=== PATIENT | female | born 1950 | race Caucasian/White ===

== ENCOUNTER 2021-07-14 11:01 | Emergency (ER) | payer BC, SELFPAY ==
--- NOTE | ~2021-07-14 | XR_ITS ---
EXAMINATION: XR foot LT min 3V EXAM DATE: 07/14/2021 11:26 INDICATION: Left foot pains, states she walked a mile today. TECHNIQUE: Left foot dorsoplantar, lateral and oblique projections obtained and reviewed. There is n o prior study for comparison. FINDINGS: Left metatarsal bones unremarkable. There are no acute fractures or dislocations identifi ed. There is no subcutaneous gas. The soft tissue is unremarkable. There are no radiopaque foreig n bodies. IMPRESSION: 1. Unremarkable left foot exam. Reviewed, dictated and finalized at location B.
[2021-07-14 11:16] VITALS: BP 128/93; PULSE 90; RESP 16; TEMP 36.2; O2SAT 99
--- NOTE | 2021-07-14 12:18 | ED.LOWEXIN ---
HPI - Extremity Injury (Lower) General Chief Complaint: Extremity Injury, Lower Stated Complaint: left foot Time Seen by Provider: 07/14/21 12:09 Source: patient and RN notes reviewed Mode of arrival: ambulatory Limitations: no limitations History of Present Illness HPI Narrative: Patient presents today complaining of left foot pain x3 days after walking a mile outside. Patient typically walks a mile every day. Believes she may have stepped wrong while turning a corner. History of osteoarthritis. Denies numbness or tingling. Currently rates her pain 7/10 with weightbearing and has been taking Tylenol with some relief. MD complaint: foot injury Related Data Home Medications Medication Instructions Recorded Confirmed albuterol sulfate INHALATION 07/14/21 amlodipine 07/14/21 atorvastatin 07/14/21 beclomethasone dipropionate [Qvar INHALATION 07/14/21 07/14/21 RediHaler] montelukast mg 07/14/21 omeprazole 07/14/21 Allergies Allergy/AdvReac Type Severity Reaction Status Date / Time No Known Allergies Allergy Unknown Verified 07/14/21 11:56 Review of Systems Review of Systems: CONSTITUTIONAL: Denies body aches, fever, chills, or sweats. EYES: Denies visual changes, redness, or discharge. ENT: Denies rhinorrhea, congestion, sore throat, or otalgia. CARDIOVASCULAR: Denies chest pain, palpitations, or edema. RESPIRATORY: Denies cough or dyspnea. GASTROINTESTINAL: Denies abdominal pain, nausea, vomiting, or diarrhea. GENITOURINARY: Denies dysuria or hematuria. SKIN: Denies rash, itching, or wounds. MUSCULOSKELETAL: Denies back pain, joint pain, or myalgia.+ Left foot pain NEUROLOGIC: Denies headache, numbness, tingling, or weakness. PSYCH: Denies depression or anxiety. PMFSH Comments At time of signature, I have reviewed and agree with nursing past medical, surgical, social and family history unless otherwise noted. Please see nursing chart for further information. There is no relevant family history pertinent to the presenting complaint Exam Narrative: GENERAL: Well-appearing, well-nourished, and in no acute distress. HEAD: Normocephalic, atraumatic. EYES: EOMI. No redness or drainage. Conjunctivae normal. ENT: Mucous membranes pink and moist. NECK: Normal AROM. CHEST: No respiratory distress. EXTREMITIES: Left: No ecchymosis, erythema, or edema noted. Tenderness to the lateral portion of the foot and plantar aspect of the mid fifth metatarsal. Distal sensation intact. Capillary refill normal. Pedal pulse normal. Full range of motion of the ankle and all toes. SKIN: Warm, dry, no rash. Capillary refill normal. Normal skin turgor. NEURO: No focal deficits. Alert and oriented x3. Gait steady. PSYCH: Normal affect. No signs of depression or anxiety. Course Vital Signs Vital signs: Vital Signs Temperature 97.2 F L 07/14/21 11:16 Pulse Rate 90 07/14/21 11:16 Respiratory Rate 16 07/14/21 11:16 Blood Pressure 128/93 H 07/14/21 11:16 Pulse Oximetry 99 07/14/21 11:16 Temperature 97.2 F L 07/14/21 11:16 Pulse Rate 90 07/14/21 11:16 Respiratory Rate 16 07/14/21 11:16 Blood Pressure 128/93 H 07/14/21 11:16 Pulse Oximetry 99 07/14/21 11:16 Reviewed. Pt has been instructed to follow up with her PCP regarding her elevated blood pressure today. MDM - Extremity Injury (Lower) Differential Diagnosis Differential diagnosis: Likely other (Foot sprain, foot fracture) Imaging Data Radiologist's impression: ITS Impressions Foot X-Ray 07/14/21 11:29 IMPRESSION: 1. Unremarkable left foot exam. Critical Care Time Critical Care Time Critical Care Time: No Discharge Plan Discharge Clinical Impression: Sprain of foot, left Patient Disposition: Home, Self-Care Condition: Stable Instructions: Foot Sprain (ED) Additional Instructions: Your x-ray is negative for fracture today. You have likely sprained your foot. Apply ice. Contin
== END 2021-07-14 12:33 | disposition home or self-care (01) ==
PROVIDERS: Emergency Provider Nurse Practitioner
DX: S93.602A Unspecified sprain of left foot, initial encounter (principal); X58.XXXA Exposure to other specified factors, initial encounter
CPT/HCPCS: 73630; 99213; G0463

== ENCOUNTER 2021-08-02 15:42 | Outpatient (CLI) | payer BC, SELFPAY ==
[2021-08-02 18:21] LABS: Vitamin D 25 Hydroxy 32.7 ng/mL
== END 2021-08-02 15:43 | disposition home or self-care (01) ==
PROVIDERS: Visit Provider Podiatrist Foot & Ankle Surgery
DX: E55.9 Vitamin D deficiency, unspecified (principal); M84.475A Pathological fracture, left foot, initial encounter for fracture
CPT/HCPCS: 36415; 82306

== ENCOUNTER 2024-04-22 15:00 | Outpatient (CLI) | payer MEDICARE, SELFPAY ==
--- NOTE | ~2024-04-22 | XR_ITS ---
EXAMINATION: XR knee RT min 4V, XR knee LT min 4V DATE: 04/22/2024 15:31 INDICATION: Chronic bilateral anterior knee pain TECHNIQUE: 1. Weight bearing anteroposterior and Mims, sunrise, and flexed lateral views of the right knee were obtained. 2. Weight bearing anteroposterior and Mims, sunrise, and flexed lateral views of the left knee w ere obtained. COMPARISON: None. FINDINGS: 10 degree right genu valgus. Normal alignment at the left knee. No fracture of either knee. There is severe joint space narrowing at the medial compartment right knee most prominent at the knee in the f lexed position and with moderate-sized marginal osteophytes and some articular cortical irregularity and mild subarticular cystic change. Tiny marginal ossified swelling the medial and patellofemoral co mpartments of the right knee. The left knee there is mild to moderate joint space narrowing in the me dial compartment of the left knee. No joint effusion in either knee. IMPRESSION: 1. Tricompartmental osteoarthritis at the right knee, severe in the lateral compartment and mild in t he medial patellofemoral compartments. 2. Mild to moderate osteoarthritis in the medial compartment of the left knee. Reviewed, dictated and finalized at location B. IMPRESSION: 1. Tricompartmental osteoarthritis at the right knee, severe in the lateral com partment and mild in the medial patellofemoral compartments. 2. Mild to moderate osteoarthritis in the medial compartment of the left knee.
== END 2024-04-22 15:01 | disposition home or self-care (01) ==
LOC: ANHIMG 15:06
PROVIDERS: Visit Provider Orthopaedic Surgery
DX: M17.0 Bilateral primary osteoarthritis of knee (principal)
CPT/HCPCS: 73564

== ENCOUNTER 2025-07-15 16:44 | Outpatient (CLI) | payer MEDICARE, SELFPAY ==
--- NOTE | ~2025-07-15 | XR_ITS ---
EXAMINATION: XR knee RT min 4V, 07/15/2025 16:57 CDT HISTORY: M17.0 - Bilateral primary osteoarthritis of knee COMPARISON: No comparisons available. Findings: No acute fracture or malalignment. Moderate tricompartmental degenerative changes, small effusion Soft tissues unremarkable. Impression: No acute fracture or malalignment. Reviewed, dictated and finalized at location A. Impression: No acute fracture or malalignment.
--- NOTE | ~2025-07-15 | XR_ITS ---
EXAMINATION: XR knee LT min 4V, 07/15/2025 16:57 CDT HISTORY: M17.0 - Bilateral primary osteoarthritis of knee COMPARISON: No comparisons available. Findings: No acute fracture or malalignment. Moderate tricompartmental degenerative changes, no effusion Soft tissues unremarkable. Impression: No acute fracture or malalignment. Reviewed, dictated and finalized at location A. Impression: No acute fracture or malalignment.
--- OUTSIDE RECORDS SUMMARY | 2025-07-15 16:57 | XMS_ITS | Encounter Summary ---
Author Organization [facility] Address [address] [place] [address] Care Team Providers Care Multifold Operator Name Role Phone Marquis Gxaiola MD Primary Care Provider [phone] Encounter Details Date Type Department Care Team (Late st Contact Info) Description 10/02/1998 Outpatient Historical [facility] Zaida Barnes Social History Tobacco Use Types Packs/Day Years Used Date Smoking Tobacco: Never Assessed Comments Unknown Sex and Gender Information Value Date Recorded Sex Assigned at Not on file Legal Sex Female 3:51 AM JOINT YARNER Gender Identity Not on file Sexual Orientation Not on file documented as of this encounter Plan of Treatment Upcoming Encounters Date Type Department Care Team (Late st Contact Info) Description 07/29/2025 3:20 PM CDT Appointment [facility] Breast [facility] at [address] [place] [address] Marquis Gaxiola [place] [id number] [place] [address] [address] [place] [address] 11/26/2025 2:20 PM JOINT YARNER Office Visit [facility] Primary Care - [facility] [id number] [facility] [address] [place] [address] [place] [id number] [facility] [address] [place] [address] documented as of this encounter Visit Diagnoses Not on filedocumented in this encounter Care Teams Multifold Operator Relationship Specialty Start [place] [id number] [address] PCP - General Tax Collection Coordinator 10/05/18 documented as of this encounter
--- OUTSIDE RECORDS SUMMARY | 2025-07-15 16:57 | XMS_ITS | Encounter Summary ---
Author Organization [facility] Address [address] [place] [address] Care Team Providers Care Cleaning Specialist Name Role Phone Marquis Gaxiola MD Primary Care Provider Encounter Details Date Type Department Care Team (Late st Contact Info) Description 02/17/2000 Outpatient Historical [facility] Winter [facility] Social History Tobacco Use Types Packs/Day Years Used Date Smoking Tobacco: Never Assessed Comments Unknown Sex and Gender Information Value Date Recorded Sex Assigned at Not on file Legal Sex Female 3:51 AM ZIGZAG TOPSTITCHER Gender Identity Not on file Sexual Orientation Not on file documented as of this encounter Plan of Treatment Upcoming Encounters Date Type Department Care Team (Late st Contact Info) Description 07/29/2025 3:20 PM CDT Appointment [facility] at [address] [place] [address] Maruqis Gaxiola MD [id number] [place] [address] [address] [place] [address] 11/26/2025 2:20 PM ZIGZAG TOPSTITCHER Office Visit [facility] Primary Care - [facility] [address] [facility] [address] [place] [address] [place] [address] [facility] [address] [place] [address] documented as of this encounter Visit Diagnoses Not on filedocumented in this encounter Care Teams Cleaning Specialist Relationship Specialty Start [place] [id number] [address] PCP - General In Classroom Tutor 10/05/18 documented as of this encounter
--- OUTSIDE RECORDS SUMMARY | 2025-07-15 16:57 | XMS_ITS | Clinical Summary ---
Author Organization [employer] [place] Address [address] [place] [address] Care Team Providers Care Flocculator Operator Name Role Phone Marquis Gaxiola MD Primary Care Provider Allergies Active Allergy Reactions Criticality Noted Date Comments Sertraline Diarrhea Low 10/05/2018 Medications aspirin (ECOTRIN EC) 81 mg Tablet, Delayed Release (E.C.) Take 81 mg by mouth daily. Active loratadine (CLARITIN) 10 mg tablet Take 10 mg by mouth daily. Active gabapentin (NEURONTIN) 400 mg capsule Take 400 mg by mouth daily at bedtime. 2 Active multivitamin (DAILY-MELANIE) tablet Take 1 Tablet by mouth daily. 90 Tablet 1 2 Active calcium as carbonate (CALTRATE) 1,500 mg (600 mg elemental) Tablet Take 500 mg by mouth daily. Active Cholecalciferol, Vitamin D3, 50 mcg (2,000 unit) Capsule Take 1 Capsule by mouth daily. Active pimecrolimus (ELIDEL) 1 % Cream Apply to affected area 2 times daily. Active fluocinonide (LIDEX) 0.05 % Cream Apply to affected area 2 times daily. Active amLODIPine (NORVASC) 5 mg tablet TAKE 1 TABLET(5 MG) BY MOUTH DAILY 100 Tablet 3 4 Active atorvastatin (LIPITOR) 40 mg tablet Take 1 Tablet (40 mg) by mouth daily. 100 Tablet 3 4 Active albuterol sulfate HFA 90 mcg/actuation aerosol inhalerIndication s:Mild persistent asthma without complication TAKE 2 PUFFS BY MOUTH EVERY 6 HOURS NEEDED FOR SHORTNESS OF BREATH 8.5 Gram 5 4 Active Qvar RediHaler 80 mcg/actuation HFA Aerosol Breath Activated INHALE 2 PUFFS BY MOUTH TWICE DAILY 10.6 Gram 5 Active montelukast (SINGULAIR) 10 mg tablet TAKE 1 TABLET(10 MG) BY MOUTH DAILY AT BEDTIME 100 Tablet 3 5 Active Active Problems Problem Noted Date Diagnosed Date Bilateral radiating leg pain 02/05/2021 Cervical radiculopathy 02/05/2021 Hyperlipidemia 10/05/2018 Assessment & Plan (11/28/2024 2:33 PM DIRECTOR OF COUNSELING): Blood pressure stable will continue current medications Myalgia 10/05/2018 Primary insomnia 10/05/2018 Hypertension 10/05/2018 Assessment & Plan (11/28/2024 2:33 PM DIRECTOR OF COUNSELING): Continue Lipitor 40 mg as currently taking Osteoporosis 10/05/2018 Overview (07/15/2022): Took Fosamax for ~ about 3 years then took Boniva for ~2years, finished 2004, Then took ONE injection of Relcast Assessment & Plan (09/21/2022 3:06 PM DIRECTOR OF COUNSELING): Improving. Assessment & Plan (07/15/2022 3:39 PM CDT): Asymptomatic. Hesitant about Prolia. Dermatofibroma of back 10/05/2018 Mild persistent asthma without complication 04/2018 Overview (11/28/2024): No acute wheezing or any respiratory symptoms noted Assessment & Plan (11/28/2024 2:34 PM DIRECTOR OF COUNSELING): Inhaler use reviewed Pure hypercholesterolemia 10/05/2018 Anxiety 10/05/2018 Encounters Date Type Department Care Team Description 06/04/2025 External Device Data ST[facility] ABSTRACTION Provider, Abstract 05/29/2025 2:00 PM CDT Office Visit [facility] - [facility] [id number] [place], [place] [address] [place] [address] Marquis Gaxiola MD Mixed hyperlipidemia (Primary Dx); Screening mammogram, encounter for; Pure hypercholesterolemia; Cutaneous sarcoidosis ([facility]) 05/14/2025 External Device Data [facility]STRACTION Provider, Abstract 05/14/2025 External Device Data [facility] ABSTRACTION Provider, Abstract 05/06/2025 [facility] Care - [facility] [address] [place] [address] Marquis Gaxiola MD 04/16/2025 External Device Data [facility]STRACTION Provider, Abstract from Last 3 Months Immunizations Immunization Administration Dates Next Due (ABRYSVO)(60 YR UP/GA 32-36 WKS) RSV, BIVALENT, PROTEIN SUBUNIT RSVPREF, DILUENT RECONSTITUTED, 0.5 ML, PF 06/30/2024 (ADACEL/BOOSTRIX)(10 YR UP) TDAP VACCINE, 0.5ML, IM 09/05/2011 (PFIZER)(12 YR UP) COVID-19 VACCINE - EMERGENCY USE AUTHORIZATION, MRNA, [id number]) 30 MCG/0.3 ML IM SUSP 08/16/2021 (PREVNAR 13)(6 WKS UP) PNEUM OCOCCAL CONJUGATE (PCV13) 0.5 ML, IM 06/30/2015 (SHINGRIX)(50 YRS UP) ZOSTER VACCINE RECOMBINANT, 0.5 ML, IM 09/29/2021,04/10/2021 INFLUENZA VACCINE HIGH DOSE QUADRIVALENT 65 YR UP PF IM 07/11/2023,07/15/2022 INFLUENZA VACCINE QUADRIVALE NT ADJ 65 YR UP PF IM 07/29/2020 Influenza Seasonal Unspecifi ed Formulation IM 07/30/2021,06/17/2019,07/10/2014,06/30,07/06/2011,07/30/2010 Influenza Seasonal Unspecifi ed Formulation PF IM 06/30/2024 Influenza Vaccine High Dose 65+ Yrs IM 0 07/11/2018,06/22/2017,06/30/2016,06/30 Influenza Vaccine Tri Adjuva nted 65+ PF IM 06/17/2019 Influenza Vaccine Tri Split 4+ Im 2013,06/30/2013,07/06/2011,07/30 Influenza, Unspecified Formulation 07/19/2024 PNEUMOVAX (PPSV23) pneumococ swati polysaccharide 23-valent Vaccine 04/05/2017 PREVNAR (PCV13) pneumococcal 13-valent conjugate Vaccine 06/30/2015 Pneumococcal Polysaccharide Vacc 23-mark IM SCHIP 04/05/2017 Zoster Vaccine Live SQ 09/08/2011 Family History Medical History Relation Name Comments Coronary Artery Disease Father Camron Andrews Hypertension Father Camron Andrews Stroke Father Camron Andrews Other Mother Mago Andrews Relation Name Status Comments Brother 1 Alive Brother 2 Alive Father Camron Andrews Mother Mago Andrews Social History Tobacco Use Types Packs/Day Years Used Date Smoking Tobacco: Never Smokeless Tobacco: Never Tobacco Cessation:Counseling Given: Not Answered Alcohol Use Standard Drinks/Week Comments No 0 (1 standard drink = 0.6 oz pur e alcohol) Feeling Safe Answer Date Recorded Are you in a relationship wi th someone who hurts you emotionally and/or physically? No 04/07/2023 Comments No Sex and Gender Information Value Date Recorded Sex Assigned at Not on file Legal Sex Female 3:51 AM DIRECTOR OF COUNSELING Gender Identity Not on file Sexual Orientation Not on file Occupation Industry Job Start Date Job End Date Retired Not on file Not on file Not on file Last Filed Vital Signs Vital Sign Reading Time Taken Comments Blood Pressure 139/82 05/29/2025 2:11 PM CDT Pulse 72 05/29/2025 2:11 PM CDT Temperature 36.6 C (97.8 F) 05/29/2025 2:11 PM CDT Respiratory Rate 16 04/07/2023 12:02 PM CDT Oxygen Saturation 97% 05/29/2025 2:11 PM CDT Inhaled Oxygen Concentration - - Weight 58.5 kg (129 lb) 05/29/2025 2:11 PM CDT Height 157.5 cm (5' 2) 05/29/2025 2:11 PM CDT Body Mass Index 23.59 05/29/2025 2:11 PM CDT Plan of Treatment Upcoming Encounters Date Type Department Care Team (Late st Contact Info) Description 07/29/2025 3:20 PM CDT Appointment [facility] [address] [place] [phone] [place] [id number] [facility] [address] [place] [address] 11/26/2025 2:20 PM DIRECTOR OF COUNSELING Office Visit [facility] - [facility] [address] [facility] [address] [place] [address] [place] [address] [facility] [address] [place] [address] Health Maintenance Due Date Last Done Comments FIT-DNA Q 3 years 1995 FIT/ DNA Q 3 YEARS (AUTO ORDER) 1995 FLEX SIG/CT COLONOGRAPHY Q 5 YEARS (AUTO ORDER) 1995 Flex Sig/CT Colonography Q 5 years 1995 DTAP/TDAP/TD VACCINES (2 - T d or Tdap) 09/05/2021 09/05/2011 FIT/FOBT Q 1 YEAR (AUTO ORDER) 03/18/2023 03/18/2022 FIT/FOBT Q 1 year 03/18/2023 03/18/2022 BREAST CANCER SCREENING 02/18/2025 02/19/20 24, 09/15/2022, 04/16/2021, Additional history exists INFLUENZA VACCINE (#1) 2025 4, 07/11/2023, 07/15/2022, Additional history exists COVID-19 Vaccine (2 - 2024-2 6 season) 2025 08/16/2021 OSTEOPOROSIS SCREENING 06/15/2026 , 03/31/2020, 12/27/2017 COLORECTAL CANCER SCREENING (AUTO ORDER) 04/07/2033 04/07/2023, 04/07/2023, 04/06/2022, Additional history exists COLORECTAL SCREENING 04/07/2033 04/07/2023, 04/07/2023, 04/06/2022, Additional history exists Colorectal Cancer Screening (AUTO ORDER) 04/07/2033 Colorectal Cancer Screening 04/07/2033 PNEUMOCOCCAL VACCINE 50+ YEARS Completed 0 04/05/2017, 04/05/2017, 06/30/2015, Additional history exists ZOSTER VACCINE Completed 09/29/2021, 03/30, 09/08/2011 RSV VACCINE (60+ or ) Completed 06/30/2024 Medicare Advantage ([place]) Preventative Visit/Annual Wellness Visit Completed 11/28/2024, 10/02/2023 Medical Devices Implanted Type Area Ups Driver Device Identifier Shelf Expiration Date Model / Serial / Lot Clip Endo Resolution 360 235cm [id number] - [id number] Implanted:Qty: 1 on 04/06/2022 by Devonte Hinton MD at [facility] END[facility] [id number] 12/12/2024 [id number] / / [id number] Clip Endo Resolution 360 235cm [id number] - [id number] Implanted:Qty: 1 on 04/06/2022 by Devonte Hinton MD at [facility] [employer] [id number] 12/12/2024 [id number] / / [id number] Description:gastric Procedures Procedure Name Priority Date/Time Associated Diagnosis Comments MAMMO 3D VINICIUS SCREEN BILAT W OR WO CAD Routine 02/19/2024 3:10 PM CDT Screening mammogram, encounter for COLONOSCOPY REPORT 04/07/2023 11 :35 AM CDT POC OCCULT BLOOD 1 CARD Routine 03/18/2022 3:19 PM CDT Blood in stool XR DEXA BONE DENSITY AXIAL 1 OR MORE SITES Routine 06/15/2021 3:19 PM CDT Age-related osteoporosis without current pathological fracture from Last 3 Months or Most Recently Relevant to Health Maintenance Results * MAMMO 3D VINICIUS SCREEN BILAT W OR WO CAD (02/19/2024 3:10 PM CDT) Anatomical Region Laterality Modality Breast Bilateral Mammography 02/19/2024 3:10 PM CDT Impressions 02/19/2024 4:02 PM CDT IMPRESSION: No mammographic evidence of malignancy. RECOMMENDATIONS: Routine screening mammogram in one year. DICTATION LOCATION: [facility] Narrative 02/19/2024 4:02 PM CDT MAMMO 3D VINICIUS SCREEN BILAT W OR WO CAD DATE: 02/19/2024 3:10 PM HISTORY: Routine screening. TECHNIQUE: Full-field digital craniocaudal and mediolateral oblique projections of both breasts were obtained. Low-dose full-field digital breast tomosynthesis examination was performed with 3D acquisitions. Examination is read in conjunction with computer aided detection. COMPARISON: Mammograms dating back to 2014 BREAST COMPOSITION: There are scattered areas of fibroglandular density. FINDINGS: No suspicious mass, suspicious microcalcifications, or architectural distortion in either breast is identified. Since the prior study, there has been no significant interval change. The computer aided diagnosis detects no significant abnormality. OVERALL FINAL ASSESSMENT: BI-RADS CATEGORY 1 : Negative Procedure Note Jennie Guy MD - 02/19/2024 MAMMO 3D VINICIUS SCREEN BILAT W OR WO CAD DATE: 02/19/2024 3:10 PM HISTORY: Routine screening. TECHNIQUE: Full-field digital craniocaudal and mediolateral oblique projections of both breasts were obtained. Low-dose full-field digital breast tomosynthesis examination was performed with 3D acquisitions. Examination is read in conjunction with computer aided detection. COMPARISON: Mammograms dating back to 2014 BREAST COMPOSITION: There are scattered areas of fibroglandular density. FINDINGS: No suspicious mass, suspicious microcalcifications, or architectural distortion in either breast is identified. Since the prior study, there has been no significant interval change. The computer aided diagnosis detects no significant abnormality. OVERALL FINAL ASSESSMENT: BI-RADS CATEGORY 1 : Negative IMPRESSION: No mammographic evidence of malignancy. RECOMMENDATIONS: Routine screening mammogram in one year. DICTATION LOCATION: [facility] us Marquis Gaxiola MD MAMMO ORDERABLES Final Result * COLONOSCOPY REPORT (04/07/2023 11:35 AM CDT) Narrative Procedure Note Devonte Hinton MD - 04/07/2023 11:34 AM CDT [facility] Endoscopy Patient Name: Qiana Olea Procedure Date: 04/07/2023 Date of : 1950 Attending MD: Devonte Hinton , , Procedure: Colonoscopy Indications: Screening for colorectal malignant neoplasm Providers: Devonte Hinton Referring MD: Marquis Gaxiola MD Medicines: General Anesthesia Complications: No immediate complications. Procedure: Informed consent was obtained for the procedure, including moderate sedation after risks were discussed. Based on the pre-procedure assessment, including review of the patient's medical history, medications, allergies, and review of systems, the patient was deemed to be an appropriate candidate for sedation. A timeout was performed. Continuous ECG monitoring, pulse oximetry, blood pressure monitoring, and direct observation were performed. The Colonoscope was introduced through the anus and advanced to the cecum, identified by appendiceal orifice and ileocecal valve. The colonoscopy was performed with ease. The patient tolerated the procedure well. The quality of the bowel preparation was good. The ileocecal valve, appendiceal orifice, and rectum were photographed. The quality of the bowel preparation was evaluated using the BBPS (New Era Bowel Preparation Scale) with scores of: Right Colon = 2 (minor amount of residual staining, small fragments of stool and/or opaque liquid, but mucosa seen well), Transverse Colon = 2 (minor amount of residual staining, small fragments of stool and/or opaque liquid, but mucosa seen well) and Left Colon = 2 (minor amount of residual staining, small fragments of stool and/or opaque liquid, but mucosa seen well). The total BBPS score equals 6. Findings: The perianal and digital rectal examinations were normal. Non-bleeding internal hemorrhoids were found during retroflexion. The hemorrhoids were small. Multiple small and large-mouthed diverticula were found in the entire colon. The exam was otherwise without abnormality. Impression: - Non-bleeding internal hemorrhoids. - Diverticulosis in the entire examined colon. - The examination was otherwise normal. - No specimens collected. Recommendation: - Patient has a contact number available for emergencies. The signs and symptoms of potential delayed complications were discussed with the patient. Return to normal activities tomorrow. Written discharge instructions were provided to the patient. - Resume previous diet. - Continue present medications. - Repeat colonoscopy in 10 years for screening purposes. Procedure Code(s): --- Professional --- 59167, Colonoscopy, flexible; diagnostic, including collection of specimen(s) by brushing or washing, when performed (separate procedure) CPT copyright 2020 [employer]. All rights reserved. The codes documented in this report are preliminary and upon crimper operator review may be revised to meet current compliance requirements. Devonte Hinton, 04/07/2023 11:34:11 AM This report has been signed electronically. Number of Addenda: [phone] [id number] [address] [phone] [place] Devonte Hinton MD GI PROCEDURE ORDERABLES Final Result * (ABNORMAL) POC OCCULT BLOOD 1 CARD (03/18/2022 3:19 PM CDT) OCCULT BLOOD 1 CARD POC Positive(A ) Negative [facility] INTERNAL KIT QC POC Pass Pass [facility] CARD LOT NUMBER POC [id number] [facility] CARD EXPIRATION DATE POC 03/29/2024 [facility] DEVELOPER [address] NUM[address] POC [id number] [facility] DEVELOPER EXPIRATION DATE POC 01/26/2025 [facility] Stool STOOL SPECIMEN / Unknown 03/18/2022 3:19 PM CDT Becki Cason SENIOR WIND TURBINE TECHNICIAN POINT OF CARE TESTING F inal Result [facility] CLIA# [id number] [address] [address] * XR DEXA BONE DENSITY AXIAL 1 OR MORE SITES (06/15/2021 3:19 PM CDT) Anatomical Region Laterality Modality Computed Radiogr aphy 06/15/2021 3:19 PM CDT Narrative 06/15/2021 4:12 PM CDT SUMMARY DEXA REPORT DATE: 06/15/2021 3:19 PM INDICATION: Postmenopausal, glucocorticoid FINDINGS: The bone mineral density is consistent with osteoporosis. The lowest T score is -3.1. The lowest T score on the previous study is -3.0. Please refer to the full report available in [facility] under the PACS Images tab. If a faxed copy is needed, please call [phone]. DICTATION LOCATION: [facility] Procedure Note Paul Calderon MD - 06/15/2021 SUMMARY DEXA REPORT DATE: 06/15/2021 3:19 PM INDICATION: Postmenopausal, glucocorticoid FINDINGS: The bone mineral density is consistent with osteoporosis. The lowest T score is -3.1. The lowest T score on the previous study is -3.0. Please refer to the full report available in [facility] under the PACS Images tab. If a faxed copy is needed, please call [phone]. DICTATION LOCATION: [facility] Marquis Gaxiola MD DIAGNOSTIC IMAGING ORDERABLES Fi nal Result from Last 3 Months or Most Recently Relevant to Health Maintenance Insurance Advance Directives For more information, please contact: [phone] * Full Code (Latest Code Status on File) Date Activated Date Inactivated Comments 05/17/2022 6:46 AM 05/17/2022 10:53 AM Care Teams Flocculator Operator Relationship Specialty Start Date End [place] [id number] [place] [address] PCP - General Market Research Lead 10/05/18
== END 2025-07-15 16:45 | disposition home or self-care (01) ==
PROVIDERS: Visit Provider Physician Assistant Surgical
DX: M17.0 Bilateral primary osteoarthritis of knee (principal)
CPT/HCPCS: 73564